=== PATIENT | female | born 1980 | race Caucasian/White ===

== ENCOUNTER 2017-06-16 23:53 | Inpatient (IN) | payer OTHER ==
--- NOTE | 2017-06-17 00:15 | PDOC ---
History of Present Illness - General History Source: Patient Exam Limitations: No Limitations - History of Present Illness Initial Comments: 06/17/17 01:47 The patient is a 37 year old A0 female with no significant PMH who presents to the emergency department with intermittent right abdominal pain that starts from the midline and radiates to the back shortly after giving to her 10 month old. The patient has not had any change in her eating habits. She states her last meal was broccoli with chicken. The patient notes her last BM was yesterday. The patient also reports associated shortness of breath and weakness secondary to her abdominal pain. The patient denies chest pain, headache and dizziness. Denies fever, chills, nausea, vomit, diarrhea and constipation. Denies dysuria, frequency, urgency and hematuria. Allergies: NKA Past surgical history: None reported Social history: No reported cigarette, alcohol, or drug use. <Miranda Kruse - Last Filed: 06/17/17 02:07> <Mandy Tabor - Last Filed: 06/17/17 06:27> - General Stated Complaint: PAIN Time Seen by Provider: 06/17/17 00:14 Past History <Miranda Kruse - Last Filed: 06/17/17 02:07> - Past Medical History Asthma: No Cancer: No Cardiac Disorders: No Diabetes: No HTN: No Seizures: No Thyroid Disease: No - Immunization History Immunization Up to Date: Yes - Suicide/Smoking/Psychosocial Hx Smoking History: Never smoked Have you smoked in the past 12 months: No Number of Cigarettes Smoked Daily: 0 Cigars Per Day: 0 Hx Alcohol Use: No Drug/Substance Use Hx: No Substance Use Type: None Hx Substance Use Treatment: No <Mandy Tabor - Last Filed: 06/17/17 06:27> - Past Medical History Allergies/Adverse Reactions: Allergies Allergy/AdvReac Type Severity Reaction Status Date / Time No Known Drug Allergies Allergy Verified 06/17/17 00:18 nut Allergy Severe Difficulty Uncoded 06/17/17 00:18 Breathing Home Medications: Ambulatory Orders Vit Calc,Iron,Folic [ Vitamins] 1 each PO DAILY 04/29/16 Ibuprofen [Motrin -] 600 mg PO QID #28 tablet 07/19/16 Review of Systems - Review of Systems Able to Perform ROS?: Yes Comments:: 06/17/17 02:01 CONSTITUTIONAL: Absent: fever, no chills, no fatigue EYES: Absent: visual changes ENT: Absent: ear pain, no sore throat CARDIOVASCULAR: Absent: chest pain, no palpitations RESPIRATORY: Absent: cough, no SOB GI: Absent: no nausea, no vomiting, no constipation, no diarrhea Present: Abdominal pain. GENITOURINARY: Absent: dysuria, no frequency, no hematuria MUSKULOSKELETAL: Absent: back pain, no arthralgia, no myalgia SKIN: Absent: rash NEURO: Absent: headache <Miranda Kruse - Last Filed: 06/17/17 02:07> *Physical Exam - Vital Signs Last Vital Signs Temp Pulse Resp BP Pulse Ox 97.6 F 92 H 18 141/84 100 06/17/17 00:19 06/17/17 00:19 06/17/17 00:19 06/17/17 00:19 06/17/17 00:19 - Physical Exam Comments: 06/17/17 02:06 GENERAL: Well-appearing, well-nourished. No apparent distress. HEENT: Normocephalic, atraumatic. PERRL, EOM intact. CARDIOVASCULAR: Normal S1, S2. Regular rate and rhythm. PULMONARY: Clear to auscultation bilaterally. ABDOMEN: Soft, non-distended, non-tender. EXTREMITIES: Normal ROM in all four extremities. No gross deformities. SKIN: Warm, dry. No rash NEUROLOGICAL: No focal neurological deficits. <Miranda Kruse - Last Filed: 06/17/17 02:07> ED Treatment Course - LABORATORY CBC & Chemistry Diagram: 06/17/17 01:46 06/17/17 01:46 <Miranda Kruse - Last Filed: 06/17/17 02:07> - LABORATORY CBC & Chemistry Diagram: 06/17/17 01:46 06/17/17 01:46 <Mandy Tabor - Last Filed: 06/17/17 06:27> Medical Decision Making - Medical Decision Making 06/17/17 06:20 Pt comes with right flank pain that extends to her back and down her side. SHe has no other complaints. Pt has a 10cm stone as well as other large stones stuck in her ureter on the right as well as huge swelling of her renal pelvis and massive hydronephrosis on the right. Pt will be admitted to the hospitalist as she needs to be evaluated by urology service <Mandy Tabor - Last Filed: 06/17/17 06:27> *DC/Admit/Observation/Transfer - Attestations Scribe Attestion: 06/17/17 02:07 Documentation prepared by Miranda Kruse, acting as medical coordinator pesticide use for Mandy Tabor MD. <Miranda Kruse - Last Filed: 06/17/17 02:07> - Discharge Dispostion Admit: Yes <Mandy Tabor - Last Filed: 06/17/17 06:27> Diagnosis at time of Disposition: Hydronephrosis with renal and ureteral calculous obstruction, Flank pain - Discharge Dispostion Condition at time of disposition: Guarded
--- NOTE | 2017-06-17 00:17 | PDOC ---
History of Present Illness - General Stated Complaint: PAIN Time Seen by Provider: 06/17/17 00:14 Past History - Past Medical History Allergies/Adverse Reactions: Allergies Allergy/AdvReac Type Severity Reaction Status Date / Time No Known Drug Allergies Allergy Verified 07/07/16 10:20 nut Allergy Severe Difficulty Uncoded 07/07/16 10:20 Breathing Home Medications: Ambulatory Orders Vit Calc,Iron,Folic [ Vitamins] 1 each PO DAILY 04/29/16 Ibuprofen [Motrin -] 600 mg PO QID #28 tablet 07/19/16 Asthma: No Cancer: No Cardiac Disorders: No Diabetes: No HTN: No Seizures: No Thyroid Disease: No - Immunization History Immunization Up to Date: Yes - Suicide/Smoking/Psychosocial Hx Smoking History: Never smoked Have you smoked in the past 12 months: No Number of Cigarettes Smoked Daily: 0 Cigars Per Day: 0 Hx Alcohol Use: No Drug/Substance Use Hx: No Substance Use Type: None Hx Substance Use Treatment: No
[2017-06-17] MEDS ORDERED: MAG HYDROX/AL HYDROX/SIMETH 30 ML UNIT-DOSE CUP PO ONE (00:54)
[2017-06-17] MEDS ORDERED: SIMETHICONE 80 MG TAB.CHEW (FP) PO ONE (00:54)
[2017-06-17] MEDS ORDERED: LACTULOSE 20 GM/30 ML UDC (FOR ORAL USE ONLY) PO ONE (00:54)
[2017-06-17] MEDS ORDERED: SODIUM CHLORIDE 0.9% 500 ML INFUS.BAG IV ONE (00:55)
[2017-06-17] MEDS ORDERED: LACTULOSE 20 GM/30 ML UDC (FOR ORAL USE ONLY) ONE (01:37)
[2017-06-17] MEDS ORDERED: MAG HYDROX/AL HYDROX/SIMETH 30 ML UNIT-DOSE CUP ONE (01:38)
[2017-06-17 01:53] LABS: BASO % 0.8 % (0-2.0); EOS % 1.6 % (0-4.5); MCH 28.2 pg (25.7-33.7); MCHC 33.1 g/dl (32.0-36.0); MEAN CELL VOLUME 85.4 fl (80-96); MEAN PLT VOLUME 8.4 fl (7.5-11.1); PLATELET COUNT 310 K/MM3 (134-434); RDW 12.9 % (11.6-15.6); WHITE BLOOD COUNT 14.9 K/mm3 (4.0-10.0)
[2017-06-17 02:41] LABS: ALBUMIN 3.5 g/dl (3.4-5.0); ALK PHOS 162 U/L (45-117); ANION GAP 8 (8-16); BILIRUBIN,TOTAL 0.1 mg/dL (0.2-1.0); CALCIUM 8.7 mg/dL (8.5-10.1); CO2 27 mmol/L (21-32); CREATININE 0.8 mg/dL (0.55-1.02); GLUCOSE,RANDOM 114 mg/dL (74-106); SGOT/AST 69 U/L (15-37); SGPT/ALT 120 U/L (12-78); TOT PROT 7.4 g/dl (6.4-8.2)
[2017-06-17 03:19] LABS: URINE APPEARANCE CLOUDY; URINE BILIRUBIN NEGATIVE (NEGATIVE); URINE BLOOD 2+ (NEGATIVE); URINE COLOR LTYELLOW; URINE GLUCOSE (UA) NEGATIVE (NEGATIVE); URINE KETONE NEGATIVE (NEGATIVE); URINE NITRITE NEGATIVE (NEGATIVE); URINE PROTEIN NEGATIVE (NEGATIVE); URINE UROBILINOGEN NEGATIVE mg/dL (0.2-1.0)
[2017-06-17 03:20] LABS: URINE LEUK ESTERASE 2+ (NEGATIVE)
[2017-06-17 03:27] LABS: URINE BACTERIA RARE /hpf (NONE SEEN); URINE MUCUS FEW; URINE RBC 108 /hpf (0-3); URINE WBC 67 /hpf (3-5)
[2017-06-17] MEDS ORDERED: morphine CARPU-JECT 2 MG/1 ML DISP.SYRIN IVPUSH ONE (06:18)
[2017-06-17] MEDS ORDERED: morphine SULFATE 4 MG/ML VIAL ONE (06:20)
[2017-06-17] MEDS ORDERED: CEFTRIAXONE 1 GM in DEXTROSE 5%-WATER - 50 ML IVPB ONE (06:26)
[2017-06-17] MEDS ORDERED: CEFTRIAXONE 1 GM/50 ML BAG ONE (06:39)
[2017-06-17 07:29] LABS: INR 1.11 (0.82-1.09); PROTHROMBIN TIME (PATIENT) 12.5 SEC (9.98-11.88)
[2017-06-17 07:32] LABS: ACTIVATED PTT 30.6 SECONDS (26.9-34.4)
[2017-06-17] MEDS ORDERED: DEXTROSE 5%-NORMAL SALINE 1,000 ML IV SCH (09:00)
[2017-06-17] MEDS ORDERED: KETOROLAC TROMETHAMINE 15 MG/ML VIAL IVPUSH PRN ×5 (09:20→21:37)
--- NOTE | 2017-06-17 09:23 | HP ---
CC: R flank pain PCP: Dr. Castanon HPI: 37 yo Cymraes speaking F w/ no significant medical history presented to the ED with R flank pain since last night. The pain is located in R flank, radiates to the groin, started 9 months ago and has been intermittent and waking her up at night, 10/10 at worst, stabbing quality, not relieved with tyelonol, aggravated by defecation and urination, a/w nausea, subjective fever and chills. No h/o gastric ulcer, diverticulosis, or ovarian cyst. Further denies chest pain, shortness of breath, headache, hematuria, hematochezia, diarrhea, constipation. PMH: Latent TB s/p INH treatment x 3 months PSH: s/p in Jul, [address] [facility] Social History: Denies smoking, drinking and drug use Family History: non-contributory Allergy: NKDA Home Meds: OTC pain relief including ibuprofen and tylenol. ROS: Constitutional: +fever, +loss of appetite, No weight loss HEENT: No headache, nasal congestion, sore throat, ear pain, vision change Skin: No rash or lesion Cardiovascular: No chest pain or sob Pulmonary: No cough (dry or productive), colored sputum Endocrine: No polyuria, polydipsia, skin /hair changes, heat/cold intolerance. GI: +abd pain, +nausea , pain on defecation : pain on urination MSK: No joint or muscle pain Psychology: No depression, anxiety, or insomnia. Physical Examination Temp Pulse Resp BP Pulse Ox 97.6 F 70 18 134/72 98 06/17/17 00:19 06/17/17 06:31 06/17/17 06:31 06/17/17 06:31 06/17/17 07:30 General: AAO x 3, calm, NAD, speak in full sentences, not in active pain Eyes: PERRLA ENT: Oropharynx clear with no lesions/erythema. Neck: Supple with no LAD or masses. Cardiovascular: tachycardic, regular, S1 and S2 normal, no m/g/r. Lungs: CTAB Abdomen: Normoactive bowel sounds. obese, Non-distended, tenderness in all quadrants except RUQ, no guarding/rebound, + R CVA tenderness Extremeties: No peripheral edema CBCD WBC 14.9 K/mm3 (4.0-10.0) H D 06/17/17 01:46 RBC 4.64 M/mm3 (3.60-5.2) D 06/17/17 01:46 Hgb 13.1 GM/dL (10.7-15.3) D 06/17/17 01:46 Hct 39.6 % (32.4-45.2) D 06/17/17 01:46 MCV 85.4 fl (80-96) 06/17/17 01:46 MCHC 33.1 g/dl (32.0-36.0) 06/17/17 01:46 RDW 12.9 % (11.6-15.6) 06/17/17 01:46 Plt Count 310 K/MM3 (134-434) D 06/17/17 01:46 MPV 8.4 fl (7.5-11.1) 06/17/17 01:46 CMP Sodium 140 mmol/L (136-145) 06/17/17 01:46 Potassium 3.7 mmol/L (3.5-5.1) 06/17/17 01:46 Chloride 105 mmol/L (98-107) 06/17/17 01:46 Carbon Dioxide 27 mmol/L (21-32) 06/17/17 01:46 Anion Gap 8 (8-16) 06/17/17 01:46 BUN 18 mg/dL (7-18) D 06/17/17 01:46 Creatinine 0.8 mg/dL (0.55-1.02) D 06/17/17 01:46 Creat Clearance w eGFR > 60 (>60) 06/17/17 01:46 Calcium 8.7 mg/dL (8.5-10.1) 06/17/17 01:46 Total Bilirubin 0.1 mg/dL (0.2-1.0) L D 06/17/17 01:46 AST 69 U/L (15-37) H D 06/17/17 01:46 ALT 120 U/L (12-78) H D 06/17/17 01:46 Alkaline Phosphatase 162 U/L (45-117) H 06/17/17 01:46 Total Protein 7.4 g/dl (6.4-8.2) D 06/17/17 01:46 Albumin 3.5 g/dl (3.4-5.0) D 06/17/17 01:46 Urine Test Results Urine Color Ltyellow 06/17/17 03:00 Urine Appearance Cloudy 06/17/17 03:00 Urine pH 7.0 (5.0-8.0) 06/17/17 03:00 Ur Specific [place] 1.014 (1.001-1.035) 06/17/17 03:00 Urine Protein Negative (NEGATIVE) 06/17/17 03:00 Urine Glucose (UA) Negative (NEGATIVE) 06/17/17 03:00 Urine Ketones Negative (NEGATIVE) 06/17/17 03:00 Urine Blood 2+ (NEGATIVE) H 06/17/17 03:00 Urine Nitrite Negative (NEGATIVE) 06/17/17 03:00 Urine Bilirubin Negative (NEGATIVE) 06/17/17 03:00 Ur Epithelial Cells Moderate /HPF (FEW) 06/17/17 03:00 Urine Bacteria Rare /hpf (NONE SEEN) 06/17/17 03:00 Urine Mucus Few 06/17/17 03:00 Imaging: CXR on 06/16: No acute pathology CT abd on 06/16: [id number] and 6mm stones in R proximal ureter with hydronephrosis , more stones in renal pelvis A/P: 37 yo F admitted to med-surg for sepsis. Sepsis - 2/2 hydronephrosis in the setting of nephrolithiasis - Urology consult - NPO for possible procedure - Urine strainer - Ceftriaxone 1g IVPB daily - D5-NS for hydration - Flomax 0.4mg daily to facilitate stone passage - Ketorolac 30mg Q6H for pain control Transaminitis - Likely reactive; normal baseline LFT - RUQ U/S and cont. to observe FEN - Cont. D5/NS 125cc/hr - Replete lytes prn - NPO Prophylaxis - DVT: SCD - GI: NPO Dispo - Awaiting urology recommendation Deejay Lewis PGY2 Pager: [phone] Visit type - Emergency Visit Emergency Visit: Yes ED Registration Date: 06/17/17 Care time: The patient presented to the Emergency Department on the above date and was hospitalized for further evaluation of their emergent condition. - New Patient This patient is new to me today: Yes Date on this admission: 06/17/17 - Critical Care Critical Care patient: No
[2017-06-17] MEDS ORDERED: TAMSULOSIN HCL 0.4 MG CAP.ER.24H (FP) PO SCH (09:30)
[2017-06-17] MEDS ORDERED: PRENATAL VITAMINS W/ FOLIC ACID TABLET (FP) PO SCH (10:00)
--- NOTE | 2017-06-17 11:14 | PN ---
Teaching Attending Note Name of Resident: Deejay Champagne ATTENDING PHYSICIAN STATEMENT Time of evaluation: 10:15 AM I saw and evaluated the patient. I reviewed the resident's note and discussed the case with the resident. I agree with the resident's findings and plan as documented. SUBJECTIVE: 37 yof with PMHx of A0, last in 07/2016, has been having intermittent right flank pain radiating to her groin since the of her last baby, intermittent. Since last night the pain got worse associated with subjective fevers, chills, some dysuria more with the pain prompting her to come to the ED. She was found with [id number] and 6 mm ureteral stones with severe right hydronephrosis. Currently patient feels better after receiving pain medications. No fevers or chills now. Urinary symptoms, dysuria, burning more so related with her abdominal and flank pain. Otherwise neg on 12 point ROS. OBJECTIVE: Vital Signs Period Temp Pulse Resp BP Sys/Carlson Pulse Ox Last 24 Hr 97.6 F 70-92 18-18 134-141/72-84 97-100 Intake & Output 06/14/17 06/15/17 06/16/17 06/17/17 23:59 23:59 23:59 23:59 Weight 175 lb GENERAL: Awake, alert, and fully oriented, in no acute distress. HEAD: Normal with no signs of trauma. EYES: Pupils equal, round and reactive to light, extraocular movements intact, sclera anicteric, conjunctiva clear. No lid lag. EARS, NOSE, THROAT: Ears normal, nares patent, oropharynx clear without exudates. Moist mucous membranes. NECK: Normal range of motion, supple without lymphadenopathy, JVD, or masses. LUNGS: Breath sounds equal, clear to auscultation bilaterally. No wheezes, and no crackles. No accessory muscle use. HEART: Regular rate and rhythm, normal S1 and S2 ABDOMEN: Soft, obese, mild Right CVA tenderness, lower abdominal pain more in RLQ, more pain rather than tenderness, no voluntary or involuntary guarding or rigidity, positive bowel sounds. MUSCULOSKELETAL: Normal range of motion at all joints. No bony deformities or tenderness. Right mild CVA tenderness UPPER EXTREMITIES: 2+ pulses, warm, well-perfused. No cyanosis. No clubbing. No peripheral edema. LOWER EXTREMITIES: 2+ pulses, warm, well-perfused. No calf tenderness. No peripheral edema. NEUROLOGICAL: Cranial nerves II-XII intact. Normal speech. N PSYCHIATRIC: Cooperative. Good eye contact. Appropriate mood and affect. SKIN: Warm, dry, normal turgor, no rashes or lesions noted, normal capillary refill. Home Medication List Medication Instructions Recorded Confirmed Type Vit Calc,Iron,Folic 1 each PO DAILY 04/29/16 06/17/17 History [ Vitamins] Active Medications Generic Name Dose Route Start Last Admin Trade Name Freq PRN Reason Stop Dose Admin Dextrose/Sodium Chloride 1,000 mls @ 125 mls/hr 06/17/17 09:00 06/17/17 10:27 D5-Ns - IV 125 mls/hr ASDIR STANFORD Administration Ketorolac Tromethamine 60 mg 06/17/17 11:15 Toradol Injection - IVPUSH 06/22/17 09:19 Q4H PRN PAIN Multivit/Folic Acid/Iron 1 tab 06/17/17 10:00 06/17/17 11:06 Vitamins (Sjr) - PO 1 tab DAILY STANFORD Administration Tamsulosin HCl 0.4 mg 06/17/17 09:30 06/17/17 10:59 Flomax - PO 0.4 mg DAILY@0830 STANFORD Administration Laboratory Results - last 24 hr 06/17/17 06/17/17 06/17/17 01:46 01:46 03:00 WBC 14.9 H D RBC 4.64 D Hgb 13.1 D Hct 39.6 D MCV 85.4 MCH 28.2 MCHC 33.1 RDW 12.9 Plt Count 310 D MPV 8.4 Neutrophils % 69.0 Lymphocytes % 22.7 Monocytes % 5.9 Eosinophils % 1.6 Basophils % 0.8 PT with INR INR PTT (Actin FS) Sodium 140 Potassium 3.7 Chloride 105 Carbon Dioxide 27 Anion Gap 8 BUN 18 D Creatinine 0.8 D Creat Clearance w eGFR > 60 Random Glucose 114 H D Calcium 8.7 Total Bilirubin 0.1 L D AST 69 H D ALT 120 H D Alkaline Phosphatase 162 H Total Protein 7.4 D Albumin 3.5 D Urine Color Ltyellow Urine Appearance Cloudy Urine pH 7.0 Ur Specific [place] 1.014 Urine Protein Negative Urine Glucose (UA) Negative Urine Ketones Negative Urine Blood 2+ H Urine Nitrite Negative Urine Bilirubin Negative Urine Urobilinogen Negative Urine WBC (Auto) 67 Urine RBC (Auto) 108 Ur Epithelial Cells Moderate Amorphous Urates Few Urine Bacteria Rare Urine Mucus Few 06/17/17 07:00 WBC RBC Hgb Hct MCV MCH MCHC RDW Plt Count MPV Neutrophils % Lymphocytes % Monocytes % Eosinophils % Basophils % PT with INR 12.50 H INR 1.11 PTT (Actin FS) 30.6 Sodium Potassium Chloride Carbon Dioxide Anion Gap BUN Creatinine Creat Clearance w eGFR Random Glucose Calcium Total Bilirubin AST ALT Alkaline Phosphatase Total Protein Albumin Urine Color Urine Appearance Urine pH Ur Specific [place] Urine Protein Urine Glucose (UA) Urine Ketones Urine Blood Urine Nitrite Urine Bilirubin Urine Urobilinogen Urine WBC (Auto) Urine RBC (Auto) Ur Epithelial Cells Amorphous Urates Urine Bacteria Urine Mucus CT A/P (overnight prelim read) - 7x7x9 mm proximal and 6mm ureteral stone with severe right hydronephrosis CXR - no acute process ASSESSMENT AND PLAN: 37 yof with nephroloithiasis, severe right hydronephrosis and possible lower uncomplicated UTI. -Nephrolithiasis with severe right hydronephrosis -Obstructive uropathy -Suspected lower uncomplicated UTI. Plan: ceftriaxone, urine cultures, IVF, pain control, NPO for now, Urology consult for possible intervention today. Check urine screen Dispo pending urology intervention and improvement in symptoms. Plan discussed with patient in detail, all questions answered. total admit time 50 min.
[2017-06-17] MEDS ORDERED: morphine SULFATE 4 MG/ML VIAL IVPUSH PRN ×2 (13:26→21:37)
--- NOTE | 2017-06-17 14:54 | EKG ---
Test Reason : Blood Pressure : / mmHG Vent. Rate : 090 BPM Atrial Rate : 090 BPM P-R Int : 164 ms QRS Dur : 086 ms QT Int : 352 ms P-R-T Axes : 036 -10 030 degrees QTc Int : 430 ms NORMAL SINUS RHYTHM MINIMAL VOLTAGE CRITERIA FOR LVH, MAY BE NORMAL VARIANT BORDERLINE ECG WHEN COMPARED WITH ECG OF 13-FEB-2016 12:28, NO SIGNIFICANT CHANGE WAS FOUND Confirmed by ALESIA MAYFIELD MD ([id number]) on 06/17/2017 2:54:32 PM Referred By: Confirmed By:ALESIA MAYFIELD MD
[2017-06-17 17:05] VITALS: BMI 39.7
--- NOTE | 2017-06-17 17:08 | CON.GU ---
Consult - History of Present Illness History of Present Illness: 37 yo female admitted with rt renal colic, elevated WBC and 9mm obstructing rt UPJ stone. No prior h/o nephrolithiasis - Past Medical History ...: No - Past Surgical History Past Surgical History: Yes: - Alcohol/Substance Use Hx Alcohol Use: No - Smoking History Smoking history: Never smoked Have you smoked in the past 12 months: No Aproximately how many cigarettes per day: 0 - Social History History of Recent Travel: No Home Medications - Allergies Allergies/Adverse Reactions: Allergies Allergy/AdvReac Type Severity Reaction Status Date / Time No Known Drug Allergies Allergy Verified 06/17/17 00:18 nut Allergy Severe Difficulty Uncoded 06/17/17 00:18 Breathing - Home Medications Home Medications: Ambulatory Orders Vit Calc,Iron,Folic [ Vitamins] 1 each PO DAILY 04/29/16 Ibuprofen [Motrin -] 600 mg PO QID #28 tablet 07/19/16 Physical Exam- Vital Signs: Vital Signs Temperature 98 F 06/17/17 15:00 Pulse Rate 75 06/17/17 15:00 Respiratory Rate 18 06/17/17 15:00 Blood Pressure 130/72 06/17/17 15:00 O2 Sat by Pulse Oximetry (%) 98 06/17/17 07:30 Renal/: Yes: WNL Labs: CBC, BMP 06/17/17 01:46 06/17/17 01:46 Imaging - Results Cat Scan: Image Reviewed Problem List - Problems (1) Hydronephrosis with renal and ureteral calculous obstruction Assessment/Plan: plan for cysto/stent placement today. Will need lithotripsy electively Code(s): N13.2 - HYDRONEPHROSIS WITH RENAL AND URETERAL CALCULOUS OBSTRUCTION
[2017-06-17] MEDS ORDERED: MIDAZOLAM HCL 2 MG/2 ML SINGLE DOSE VIAL ONE (17:16)
[2017-06-17] MEDS ORDERED: PROPOFOL 20 ML ONE ×2 (17:17)
[2017-06-17] MEDS ORDERED: AMPICILLIN NA/SULBACTAM NA 1.5 GM VIAL ONE (17:19)
--- NOTE | 2017-06-17 17:45 | OP ---
Operative Note - Note: Operative Date: 06/17/17 Pre-Operative Diagnosis: obstructing RUPJ stone Operation: cysto/retrograde/stent placement Findings: obstructing stone Post-Operative Diagnosis: Same as Pre-op Surgeon: Terrence Gruber Anesthesiologist/MEAT HANGER: Jamilah Mckee MD Anesthesia: General Drains & Tubes with Location: 7fr, 24cm stent Operative Report Dictated: Yes
[2017-06-17] MEDS ORDERED: ACETAMINOPHEN INJECTION 100 ML IVPB ONE (17:53)
[2017-06-17] MEDS ORDERED: ONDANSETRON 4 MG/2 ML VIAL IVPUSH PRN (18:19)
[2017-06-17] MEDS ORDERED: ACETAMINOPHEN 1000 MG/100 ML VIAL (NON FORMULARY) IVPB ONE (18:20)
[2017-06-17 19:50] LABS: URINE LEUK ESTERASE NEGATIVE (NEGATIVE)
[2017-06-17] MEDS: LACTATED RINGERS SOLUTION 1,000 ML IV SCH (22:00)
[2017-06-18] MEDS ORDERED: PT OWN MED DRAWER 7, Y5N ONE ×2 (01:23→07:11)
[2017-06-18] MEDS: LACTATED RINGERS SOLUTION 1,000 ML IV SCH (06:36)
[2017-06-18 07:42] LABS: MCH 28.2 pg (25.7-33.7); MCHC 32.9 g/dl (32.0-36.0); MEAN CELL VOLUME 85.7 fl (80-96); MEAN PLT VOLUME 8.8 fl (7.5-11.1); PLATELET COUNT 324 K/MM3 (134-434); WHITE BLOOD COUNT 10.6 K/mm3 (4.0-10.0)
[2017-06-18 07:43] LABS: INR 1.18 (0.82-1.09); PROTHROMBIN TIME (PATIENT) 13.3 SEC (9.98-11.88)
[2017-06-18 07:46] LABS: ACTIVATED PTT 28.5 SECONDS (26.9-34.4)
[2017-06-18 08:10] LABS: ANION GAP 8 (8-16); CALCIUM 8.4 mg/dL (8.5-10.1); CO2 23 mmol/L (21-32); CREATININE 0.5 mg/dL (0.55-1.02); GLUCOSE,RANDOM 134 mg/dL (74-106); SGOT/AST 38 U/L (15-37); SGPT/ALT 92 U/L (12-78)
[2017-06-18 08:12] LABS: ALK PHOS 122 U/L (45-117); BILIRUBIN,TOTAL 0.5 mg/dL (0.2-1.0); TOT PROT 6.9 g/dl (6.4-8.2)
[2017-06-18] MEDS ORDERED: TAMSULOSIN HCL 0.4 MG CAP.ER.24H (FP) PO SCH (08:30)
--- NOTE | 2017-06-18 08:43 | OP ---
DATE OF OPERATION: 06/17/2017 PREOPERATIVE DIAGNOSIS: Obstructing right ureteropelvic junction stone. POSTOPERATIVE DIAGNOSIS: Obstructing right ureteropelvic junction stone. PROCEDURE: Cystoscopy, right retrograde pyelogram, ureteral stent placement. SURGEON: Terrence Gruber MD INDICATIONS: Patient is a 37-year-old female who presented with right-sided flank pain. CT scan showed an obstructing 9-mm stone with elevated white count. Patient was taken to the OR for cystoscopy and stent placement. DESCRIPTION OF PROCEDURE: After informed consent was obtained, and risks, benefits, and alternatives were discussed, the patient was taken to the OR for the procedure. She was taken to the OR. General anesthesia was then established. She was prepped and draped in dorsal lithotomy position. She was given 4.5 g of Unasyn. At this point, the rigid cystoscope was introduced without difficulty into the bladder. Attention was turned to the right ureteral orifice. There was no abnormalities noted in the bladder. Right ureteral orifice was cannulated with ureteral catheter. Contrast was injected progressively , and there was hydronephrosis to the UPJ, moderate hydronephrosis. A guidewire was advanced beyond the stone noted at the UPJ, and then, over the guidewire, the 7-German 24-cm double pigtail stent was advanced in a monorail fashion. Fluoroscopy confirmed stent to be in good position. Patient was awoken from anesthesia and transferred to recovery room in stable condition. There were no complications. ESTIMATED BLOOD LOSS: 0. [place] [id number]
[2017-06-18] MEDS ORDERED: PRENATAL VITAMINS W/ FOLIC ACID TABLET (FP) PO SCH (10:00)
[2017-06-18] MEDS ORDERED: CEFTRIAXONE 1 G/50 ML PREMIX 50 ML IVPB SCH ×2 (10:00)
--- NOTE | 2017-06-18 13:16 | PN ---
Progress Note (short form) - Note Progress Note: Anesthesia POD#1 S/P Cystoscopy under GA VSS,no N/V,no pain issues,food is advanced. Eladia Childs MD.
--- NOTE | 2017-06-18 14:28 | PN ---
Teaching Attending Note Name of Resident: Terrence Smith ATTENDING PHYSICIAN STATEMENT I saw and evaluated the patient. I reviewed the resident's note and discussed the case with the resident. I agree with the resident's findings and plan as documented. SUBJECTIVE:states pain has mostly resolved. denies CP, SOB, fever, chills, N/V/C /D. OBJECTIVE: Last Vital Signs Temp Pulse Resp BP Pulse Ox 98.2 F 73 20 129/72 97 06/18/17 06:00 06/18/17 06:00 06/18/17 06:00 06/18/17 06:00 06/17/17 21:00 General NAD CV S1 S2 RRR no murmru/rub/gallop Lungs CTA B/L no wheezing/rales/rhonchi Abdomen soft NT/ND no CVA tenderness ASSESSMENT AND PLAN: 37 yo F with nephroloithiasis, severe right hydronephrosis and possible lower uncomplicated UTI. 1. Severe R hydronephrosis due to obstructive nephrolithasis- s/p R UVJ stent . will need elective lithotripsy. no renal impairment. on flomax. cont to strain urine to obtain stone for composition. 2. Suspected UTI- due to obstruction. prophylactic treatment in setting of stent placement. on Ceftriaxone day2. complete 7 day course 3. d/c home today -Nephrolithiasis with severe right hydronephrosis -Obstructive uropathy -Suspected lower uncomplicated UTI. Plan: ceftriaxone, urine cultures, IVF, pain control, NPO for now, Urology consult for possible intervention today. Check urine screen Dispo pending urology intervention and improvement in symptoms. Plan discussed with patient in detail, all questions answered. total admit time 50 min.
[2017-06-18 14:45] VITALS: BP 111/72; PULSE 77; TEMP 98.3
--- NOTE | 2017-06-18 19:14 | DS ---
Physical Exam: SUBJECTIVE: Patient seen and examined OBJECTIVE: Vital Signs Period Temp Pulse Resp BP Sys/Carlson Pulse Ox Last 24 Hr 98.2 F-98.3 F 73-89 18-20 111-140/58-78 97-97 PHYSICAL EXAM GENERAL: The patient is awake, alert, and fully oriented, in no acute distress. HEAD: Normal with no signs of trauma. EYES: PERRL, extraocular movements intact, sclera anicteric, conjunctiva clear. ENT: Ears normal, nares patent, oropharynx clear without exudates, moist mucous membranes. NECK: Trachea midline, full range of motion, supple. LUNGS: Breath sounds equal, clear to auscultation bilaterally, no wheezes, no crackles, no accessory muscle use. HEART: Regular rate and rhythm, S1, S2 without murmur, rub or gallop. ABDOMEN: Soft, nontender, nondistended, normoactive bowel sounds, no guarding, no rebound, no hepatosplenomegaly, no masses. EXTREMITIES: 2+ pulses, warm, well-perfused, no edema. NEUROLOGICAL: Cranial nerves II through XII grossly intact. Normal speech, gait not observed. PSYCH: Normal mood, normal affect. SKIN: Warm, dry, normal turgor, no rashes or lesions noted. LABS Laboratory Results - last 24 hr 06/17/17 06/18/17 06/18/17 03:00 06:30 06:30 WBC 10.6 H RBC 4.49 Hgb 12.7 Hct 38.5 MCV 85.7 MCH 28.2 MCHC 32.9 RDW 13.0 Plt Count 324 MPV 8.8 PT with INR 13.30 H INR 1.18 H PTT (Actin FS) 28.5 Sodium Potassium Chloride Carbon Dioxide Anion Gap BUN Creatinine Creat Clearance w eGFR Random Glucose Calcium Total Bilirubin AST ALT Alkaline Phosphatase Total Protein Albumin Ur Leukocyte Esterase Negative 06/18/17 06:30 WBC RBC Hgb Hct MCV MCH MCHC RDW Plt Count MPV PT with INR INR PTT (Actin FS) Sodium 138 Potassium 4.3 Chloride 107 Carbon Dioxide 23 Anion Gap 8 BUN 14 D Creatinine 0.5 L D Creat Clearance w eGFR > 60 Random Glucose 134 H Calcium 8.4 L Total Bilirubin 0.5 D AST 38 H D ALT 92 H D Alkaline Phosphatase 122 H D Total Protein 6.9 Albumin 3.0 L Ur Leukocyte Esterase HOSPITAL COURSE: Date of Admission:06/17/17 37 year old female no medical history presented to the hospital with right flank pain that radiated to her groin for several months duration. She was diagnosed with sepsis secondary to hydronephrosis due to an obstructing 7mm stone in the right ureteropelvic junction. Patient was treated initially with ceftriaxone 1gm, IV fluids, and flomax. Dr. Gruber was consulted and placed a R sided UPJ stent. Patient was discharged home with instructions to follow up with Dr. Gruber in the clinic for possible lithotripsy in the future if the stone does not pass on its own. She was instructed to strain her urine and bring the stone to the urologist's office for analysis if she manages to obtain it. She was instructed to follow with her primary care physician within 1 week of discharge. Date of Discharge: 06/18/17 Minutes to complete discharge: 30 Discharge Summary Reason For Visit: HYDRONEEPHROSISWITH RENAL AND URETHRAL CALCULUS Condition: Improved - Instructions Diet, Activity, Other Instructions: Ms. Lopez, you have been diagnosed with a kidney stone. You had a right sided urethral stent placed to keep to help passage of urine and possibly the stone. Please continue to drink plenty of fluids to help pass the stone. You have been prescribed a medication that causes increased urination to assist in passing stone. Please use the strainer given every time you urinate to try and catch stone, which you can bring to your urologist to be evaluated. Please continue to take prescribed antibiotic as directed. Diet instructed printed. Please follow up with urologist with in one week. Please follow up at clinic with in the next two weeks. If you experience any worsening of symptoms including fever, chills, intractable pain, please return to the emergency room. Referrals: Anthony Pisano MD [Staff Physician] - Terrence Gruber MD [Staff Physician] - Disposition: HOME - Home Medications Comprehensive Discharge Medication List: Ambulatory Orders Vit Calc,Iron,Folic [ Vitamins] 1 each PO DAILY 04/29/16 Cefuroxime Axetil [Ceftin -] 500 mg PO Q12H #10 tablet 06/18/17 Ibuprofen [Motrin -] 600 mg PO QID #28 tablet 06/18/17 Tamsulosin HCl [Flomax -] 0.4 mg PO DAILY@0830 #7 cap.er.24h 06/18/17 This patient is new to me today: No Emergency Visit: No Critical Care patient: No - Discharge Referral Referred to [facility] No
== END 2017-06-18 17:43 | disposition home or self-care (01) | DRG 463 ==
LOC: JER 23:53 → JERBED 06-17 06:27 → J5S 06-17 08:37
PROVIDERS: ADMIT Internal Medicine; ATTEND Internal Medicine
PROC: 0T768DZ Dilation of Right Ureter with Intraluminal Device, Via Natural or Artificial Opening Endoscopic (ICD-10-PCS; principal; 2017-06-17 16:00)
PROC: BT1DZZZ Fluoroscopy of Right Kidney, Ureter and Bladder (ICD-10-PCS; 2017-06-17 16:00)
DX: N13.6 Pyonephrosis (principal); R74.0 Nonspecific elevation of levels of transaminase and lactic acid dehydrogenase [LDH]; E66.8 Other obesity; Z68.39 Body mass index [BMI] 39.0-39.9, adult
CPT/HCPCS: 36415; 71010-TC; 74177-TC; 76000-TC; 76705-TC; 80053; 81003; 81015; 84703; 85025; 85027; 85610; 85730; 87086; 93005; 93010; 94760; 99285-25

== ENCOUNTER 2020-12-22 12:28 | Inpatient (IN) | payer OTHER ==
[2020-12-22 14:36] VITALS: BMI 45.1
[2020-12-22] MEDS ORDERED: CITRIC ACID/SODIUM CITRATE 30 ML UNIT-DOSE CUP PO ONE (15:10)
[2020-12-22] MEDS ORDERED: ELECTROLYTE-148 SOLN 1,000 ML IV SCH (15:15)
[2020-12-22] MEDS ORDERED: FAMOTIDINE 20 MG/50 ML IVPB 20 MG/50 ML MG IVPB ONE (15:55)
[2020-12-22 16:10] LABS: BASO % 0.2 % (0-2.0); EOS % 0.7 % (0-4.5); HEMATOCRIT 37.2 % (32.4-45.2); HEMOGLOBIN 12.4 GM/dL (10.7-15.3); LYMPH % 20.6 % (8-40); MCH 29.4 pg (25.7-33.7); MCHC 33.2 g/dl (32.0-36.0); MEAN CELL VOLUME 88.4 fl (80-96); MEAN PLT VOLUME 8.8 fl (7.5-11.1); MONO % 4.5 % (3.8-10.2); PLATELET COUNT 242 10^3/uL (134-434); RBC 4.21 M/mm3 (3.60-5.2); RDW 13.8 % (11.6-15.6)
[2020-12-22 16:23] LABS: INR 0.96 (0.83-1.09); PROTHROMBIN TIME (PATIENT) 11.8 SEC (9.7-13.0)
[2020-12-22 16:26] LABS: ACTIVATED PTT 27.9 SECONDS (25.2-36.5)
[2020-12-22 16:33] LABS: CALCIUM 8.7 mg/dL (8.5-10.1)
[2020-12-22 16:37] LABS: CREATININE 0.4 mg/dL (0.55-1.3)
[2020-12-22] MEDS ORDERED: morphine SULFATE/PF 0.5 MG/ML (2cc Syringe - QUVA) ONE (17:54)
[2020-12-22] MEDS ORDERED: OXYTOCIN 20 UNITS in 0.9% NS 20 UNIT/1,000 ML INFUS.BAG IV ONE ×2 (18:03→21:20)
[2020-12-22] MEDS ORDERED: ONDANSETRON 4 MG/2 ML VIAL IVPUSH PRN (19:03)
[2020-12-22] MEDS ORDERED: morphine SULFATE/PF 0.5 MG/ML (2cc Syringe - QUVA) EP ONE (19:03)
[2020-12-22] MEDS ORDERED: WITCH HAZEL 50% (TUCKS) 40 PAD/JAR PAD TP PRN (20:15)
[2020-12-22] MEDS ORDERED: OXYTOCIN 20 UNITS in 0.9% NS 20 UNIT/1,000 ML INFUS.BAG IV SCH (20:15)
[2020-12-22] MEDS ORDERED: BENZOCAINE 20% 57 GM BOTTLE TP PRN (20:15)
[2020-12-22] MEDS ORDERED: METHYLERGONOVINE MALEATE 0.2 MG/1 ML AMP IM PRN (20:15)
[2020-12-22] MEDS ORDERED: BENZOCAINE 28 GM HEMORRHOIDAL OINTMENT PR PRN (20:15)
[2020-12-22] MEDS ORDERED: DEXTROSE 5%-LACTATED RINGERS 1,000 ML IV SCH (20:15)
[2020-12-22] MEDS ORDERED: diphenhydrAMINE HCL 25 MG CAPSULE (FP) PO PRN (20:15)
[2020-12-22] MEDS ORDERED: oxyCODONE HCL 5 MG TABLET PO PRN (20:15)
[2020-12-22 21:36] LABS: CORD BASE EXCESS -4.9 mmol/L (0-2); CORD HCO3 23.2 mmHg (20-29); CORD PCO2 55.3 mmHg (30-78); CORD pH 7.241 (7.14-7.44)
[2020-12-22 21:39] LABS: CORD BASE EXCESS -3.1 mmol/L (0-2); CORD HCO3 26.2 mmHg (20-29); CORD PCO2 67.7 mmHg (30-78); CORD pH 7.206 (7.14-7.44)
[2020-12-23] MEDS: CEFAZOLIN 1 GM/D5W 1 GM/50 ML BAG IVPB SCH ×2 (01:50→09:16)
[2020-12-23] MEDS: IBUPROFEN 800 MG/8 ML IJ IVPB PRN ×2 (02:31→09:15)
[2020-12-23 07:25] LABS: HEMATOCRIT 36.2 % (32.4-45.2); HEMOGLOBIN 11.6 GM/dL (10.7-15.3); LYMPH % 8.8 % (8-40); MCH 28.6 pg (25.7-33.7); MCHC 31.9 g/dl (32.0-36.0); MEAN CELL VOLUME 89.7 fl (80-96); MEAN PLT VOLUME 9.4 fl (7.5-11.1); MONO % 3.6 % (3.8-10.2); NEUT % 87.6 % (42.8-82.8); PLATELET COUNT 224 10^3/uL (134-434); RBC 4.03 M/mm3 (3.60-5.2); RDW 13.6 % (11.6-15.6)
[2020-12-23] MEDS: ENOXAPARIN NA (PORCINE) 40 MG/0.4 ML DISP.SYRIN SQ SCH (09:16)
[2020-12-23] MEDS: SIMETHICONE 80 MG TAB.CHEW (FP) PO PRN (09:20)
[2020-12-23] MEDS: ACETAMINOPHEN 325 MG TABLET (FP) PO PRN (19:34)
[2020-12-23] MEDS: IBUPROFEN 600 MG TABLET (FP) PO PRN (19:35)
[2020-12-23] MEDS ORDERED: BISACODYL 10 MG SUPP.RECT PR PRN (20:15)
[2020-12-24] MEDS: ACETAMINOPHEN 325 MG TABLET (FP) PO PRN ×3 (04:35→21:06)
[2020-12-24] MEDS: IBUPROFEN 600 MG TABLET (FP) PO PRN ×4 (04:35→21:06)
[2020-12-24] MEDS: SIMETHICONE 80 MG TAB.CHEW (FP) PO PRN ×4 (04:36→21:05)
[2020-12-24] MEDS: oxyCODONE HCL 5 MG TABLET PO PRN ×2 (08:55→21:07)
[2020-12-24] MEDS: ENOXAPARIN NA (PORCINE) 40 MG/0.4 ML DISP.SYRIN SQ SCH (09:37)
[2020-12-24 21:45] VITALS: PULSE 82
[2020-12-24] MEDS ORDERED: SENNOSIDES/DOCUSATE COMBO (SENNA PLUS) TABLET (UD) PO PRN (22:00)
[2020-12-25] MEDS: ACETAMINOPHEN 325 MG TABLET (FP) PO PRN ×2 (05:42→10:08)
[2020-12-25] MEDS: oxyCODONE HCL 5 MG TABLET PO PRN (05:43)
[2020-12-25] MEDS: SIMETHICONE 80 MG TAB.CHEW (FP) PO PRN ×2 (05:45→10:08)
[2020-12-25 09:55] LABS: BASO % 0.5 % (0-2.0); EOS % 1.9 % (0-4.5); HEMATOCRIT 33.7 % (32.4-45.2); HEMOGLOBIN 11.2 GM/dL (10.7-15.3); LYMPH % 29.6 % (8-40); MCH 29.4 pg (25.7-33.7); MCHC 33.1 g/dl (32.0-36.0); MEAN CELL VOLUME 88.9 fl (80-96); MEAN PLT VOLUME 9.3 fl (7.5-11.1); MONO % 6.4 % (3.8-10.2); NEUT % 61.6 % (42.8-82.8); PLATELET COUNT 254 10^3/uL (134-434); RBC 3.79 M/mm3 (3.60-5.2); RDW 13.6 % (11.6-15.6)
[2020-12-25] MEDS: ENOXAPARIN NA (PORCINE) 40 MG/0.4 ML DISP.SYRIN SQ SCH (10:03)
[2020-12-25] MEDS: IBUPROFEN 600 MG TABLET (FP) PO PRN (10:07)
[2020-12-25 14:43] VITALS: BP 142/86; TEMP 98.3
== END 2020-12-25 14:10 | disposition home or self-care (01) | DRG 540 ==
LOC: JLDR 12:28 → J3W 21:40
PROVIDERS: ADMIT Obstetrics & Gynecology; ATTEND Obstetrics & Gynecology
PROC: 10D00Z1 Extraction of Products of Conception, Low, Open Approach (ICD-10-PCS; principal; 2020-12-22)
PROC: 0UL70ZZ Occlusion of Bilateral Fallopian Tubes, Open Approach (ICD-10-PCS; 2020-12-22)
DX: O34.219 Maternal care for unspecified type scar from previous cesarean delivery (principal); Z3A.39 39 weeks gestation of pregnancy; Z37.0 Single live birth; O99.214 Obesity complicating childbirth; E66.01 Morbid (severe) obesity due to excess calories; Z30.2 Encounter for sterilization; O90.89 Other complications of the puerperium, not elsewhere classified; R51.9 Headache, unspecified
CPT/HCPCS: 36415; 36600; 80048; 82803; 85025; 85610; 85730; 86780; 86850; 86900; 86901; 88302-TC; 88307-TC; C9803; U0003; U0005

== ENCOUNTER 2022-04-02 17:44 | Emergency (ER) | payer OTHER ==
[2022-04-02 18:12] VITALS: BP 114/67; PULSE 59; RESP 18; TEMP 97.8; BMI 28.3
== END 2022-04-02 19:20 | disposition home or self-care (01) ==
LOC: JER 17:44 → JERFT 17:44
DX: M72.2 Plantar fascial fibromatosis (principal)
CPT/HCPCS: 73610-TC-LT-FY; 73630-TC-LT; 99283-25

== ENCOUNTER 2022-11-02 19:01 | Emergency (ER) | payer OTHER ==
[2022-11-02 19:13] VITALS: BMI 28.3
[2022-11-02] MEDS ORDERED: ACETAMINOPHEN 1000 MG/100 ML BAG IVPB ONE (19:44)
[2022-11-02] MEDS ORDERED: METOCLOPRAMIDE HCL INJECTION 10 MG/2 ML VIAL IVPB ONE (19:44)
[2022-11-02] MEDS ORDERED: SODIUM CHLORIDE 0.9% 500 ML INFUS.BAG IV ONE ×2 (19:44→19:51)
[2022-11-02] MEDS ORDERED: MAG HYDROX/AL HYDROX/SIMETH -MYLANTA- ORAL SUSPENSION PO ONE (19:45)
[2022-11-02] MEDS ORDERED: FAMOTIDINE 20 MG/50 ML IVPB 20 MG/50 ML MG IVPB ONE ×2 (19:45→19:49)
[2022-11-02] MEDS ORDERED: MAG HYDROX/AL HYDROX/SIMETH 30 ML UNIT-DOSE CUP ONE ×2 (19:49→19:52)
[2022-11-02] MEDS ORDERED: ACETAMINOPHEN INJECTION 100 ML IVPB ONE (19:49)
[2022-11-02] MEDS ORDERED: METOCLOPRAMIDE HCL INJECTION 10 MG/2 ML VIAL ONE (19:49)
[2022-11-02 20:51] LABS: BASO % 0.2 % (0-2.0); HEMATOCRIT 33.8 % (32.4-45.2); LYMPH % 4.1 % (8-40); MCH 24.8 pg (25.7-33.7); MCHC 32.7 g/dl (32.0-36.0); MEAN CELL VOLUME 75.9 fl (80-96); MEAN PLT VOLUME 9.4 fl (7.5-11.1); MONO % 4.2 % (3.8-10.2); NEUT % 91.5 % (42.8-82.8); PLATELET COUNT 261 10^3/uL (134-434); RBC 4.45 M/mm3 (3.60-5.2); WHITE BLOOD COUNT 13.1 K/mm3 (4.0-10.0)
[2022-11-02 21:13] LABS: ALBUMIN 3.4 g/dl (3.4-5.0); CALCIUM 8.7 mg/dL (8.5-10.1); MAGNESIUM 1.9 mg/dL (1.8-2.4)
[2022-11-02 21:16] LABS: CREATININE 0.8 mg/dL (0.55-1.3)
[2022-11-02 21:18] LABS: BILIRUBIN,TOTAL 0.3 mg/dL (0.2-1); TOT PROT 7.1 g/dl (6.4-8.2)
[2022-11-02 22:00] LABS: ANISOCYTOSIS 0; MACROCYTOSIS 0; PLATELET ESTIMATE NORMAL
[2022-11-02 22:30] VITALS: BP 108/68; PULSE 67; RESP 12; TEMP 98.6
== END 2022-11-02 22:58 | disposition home or self-care (01) ==
LOC: JER 19:01
PROC: 3E033GC Introduction of Other Therapeutic Substance into Peripheral Vein, Percutaneous Approach (ICD-10-PCS; principal; 2022-11-02)
DX: B34.9 Viral infection, unspecified (principal)
CPT/HCPCS: 0241U-QW; 36415; 80053; 83690; 83735; 84703; 85025; 99284-25

== ENCOUNTER 2023-03-04 22:21 | Emergency (ER) | payer OTHER ==
[2023-03-04 22:34] VITALS: BP 113/77; PULSE 69; RESP 18; TEMP 98.2; BMI 31.5
[2023-03-05] MEDS ORDERED: ACETAMINOPHEN 500 MG TABLET (FP) PO ONE (01:16)
== END 2023-03-05 02:05 | disposition home or self-care (01) ==
LOC: JERFT 22:21
DX: S83.512A Sprain of anterior cruciate ligament of left knee, initial encounter (principal); M25.562 Pain in left knee; W01.0XXA Fall on same level from slipping, tripping and stumbling without subsequent striking against object, initial encounter
CPT/HCPCS: 73562-TC-LT-FY; 99283-25

== ENCOUNTER 2023-04-17 23:35 | Inpatient (IN) | payer OTHER ==
[2023-04-17 23:46] VITALS: BMI 29.9
[2023-04-18] MEDS ORDERED: ACETAMINOPHEN 1000 MG/100 ML BAG IVPB ONE ×3 (00:09→10:57)
[2023-04-18] MEDS ORDERED: ONDANSETRON 4 MG/2 ML VIAL IVPUSH ONE (00:09)
[2023-04-18] MEDS ORDERED: FAMOTIDINE 20 MG/50 ML IVPB 20 MG/50 ML MG IVPB ONE ×2 (00:09→00:42)
[2023-04-18] MEDS ORDERED: LACTATED RINGERS SOLUTION 1000 ML INFUS.BAG IV ONE (00:09)
[2023-04-18] MEDS ORDERED: ACETAMINOPHEN INJECTION 100 ML IVPB ONE ×2 (00:15→10:54)
[2023-04-18] MEDS ORDERED: ONDANSETRON 4 MG/2 ML VIAL ONE ×3 (00:16→08:50)
[2023-04-18 00:31] LABS: BASO % 0.8 % (0-2.0); EOS % 1.2 % (0-4.5); HEMATOCRIT 30.3 % (32.4-45.2); HEMOGLOBIN 9.7 GM/dL (10.7-15.3); LYMPH % 20.9 % (8-40); MCH 22.3 pg (25.7-33.7); MCHC 32.2 g/dl (32.0-36.0); MEAN CELL VOLUME 69.3 fl (80-96); MEAN PLT VOLUME 8.4 fl (7.5-11.1); MONO % 8.3 % (3.8-10.2); NEUT % 68.8 % (42.8-82.8); PLATELET COUNT 296 10^3/uL (134-434); RBC 4.38 M/mm3 (3.60-5.2); WHITE BLOOD COUNT 13.8 K/mm3 (4.0-10.0)
[2023-04-18 00:33] LABS: EPI CELLS 16 /uL (0-25.1); HYALINE CASTS 0 /uL (0-3.1); PH,URINE 6.5 (5.0-8.0); URINE APPEARANCE CLEAR; URINE BACTERIA >9,000 /uL (0-1359); URINE BILIRUBIN NEGATIVE (NEGATIVE); URINE COLOR YELLOW; URINE GLUCOSE (UA) NEGATIVE (NEGATIVE); URINE KETONE NEGATIVE (NEGATIVE); URINE LEUK ESTERASE TRACE (NEGATIVE); URINE NITRITE POSITIVE (NEGATIVE); URINE PROTEIN NEGATIVE (NEGATIVE); URINE RBC 145 /uL (0-23.9); URINE WBC 49 /uL (0-25.8)
[2023-04-18 00:34] LABS: HCG,QUALITATIVE URINE Negative
[2023-04-18] MEDS ORDERED: CEFTRIAXONE 1 GM in DEXTROSE 5%-WATER - 100 ML IVPB ONE (00:35)
[2023-04-18] MEDS ORDERED: CEFTRIAXONE 1 GM/50 ML BAG ONE (00:41)
[2023-04-18 01:12] LABS: POTASSIUM 4.3 mmol/L (3.5-5.1)
[2023-04-18 01:14] LABS: ALBUMIN 3.4 g/dl (3.4-5.0); BLOOD UREA NITROGEN 9.6 mg/dL (7-18); CALCIUM 8.4 mg/dL (8.5-10.1); MAGNESIUM 2.2 mg/dL (1.8-2.4)
[2023-04-18 01:17] LABS: CREATININE 0.6 mg/dL (0.55-1.3)
[2023-04-18 01:20] LABS: BILIRUBIN,TOTAL 0.4 mg/dL (0.2-1); TOT PROT 7.1 g/dl (6.4-8.2)
[2023-04-18] MEDS ORDERED: ACETAMINOPHEN 1000 MG/100 ML BAG IVPB PRN (05:33)
[2023-04-18] MEDS ORDERED: ONDANSETRON 4 MG/2 ML VIAL IVPUSH PRN ×2 (05:40→10:47)
[2023-04-18] MEDS ORDERED: SODIUM CHLORIDE 1,000 ML IV SCH (05:45)
[2023-04-18 07:12] LABS: HEMATOCRIT 29.2 % (32.4-45.2); HEMOGLOBIN 9.1 GM/dL (10.7-15.3); MCHC 31.1 g/dl (32.0-36.0); MEAN CELL VOLUME 70.7 fl (80-96); PLATELET COUNT 264 10^3/uL (134-434); RBC 4.14 M/mm3 (3.60-5.2); RDW 15.6 % (11.6-15.6); WHITE BLOOD COUNT 17.3 K/mm3 (4.0-10.0)
[2023-04-18 07:13] LABS: INR 1.21 (0.83-1.09)
[2023-04-18 07:16] LABS: ACTIVATED PTT 27.1 SECONDS (25.2-36.5)
[2023-04-18 07:38] LABS: POTASSIUM 4.1 mmol/L (3.5-5.1)
[2023-04-18 08:19] LABS: RETICULOCYTES 1.08 % (0.5-1.5)
[2023-04-18] MEDS ORDERED: BUPIVACAINE HCL/PF 0.25% (2.5MG/ML) 10 ML VIAL ONE (08:24)
[2023-04-18 08:29] LABS: BLOOD UREA NITROGEN 6.7 mg/dL (7-18)
[2023-04-18] MEDS ORDERED: SUCCINYLCHOLINE CHLORIDE 200 MG/10 ML SYRINGE ONE (08:29)
[2023-04-18] MEDS ORDERED: ROCURONIUM BROMIDE 50 MG/5 ML SYRINGE ONE (08:29)
[2023-04-18] MEDS ORDERED: PROPOFOL 20 ML ONE (08:29)
[2023-04-18 08:30] LABS: ALBUMIN 3.1 g/dl (3.4-5.0)
[2023-04-18 08:32] LABS: CALCIUM 8.1 mg/dL (8.5-10.1); CREATININE 0.5 mg/dL (0.55-1.3); PHOSPHOROUS 2.9 mg/dL (2.5-4.9)
[2023-04-18 08:33] LABS: BILIRUBIN,TOTAL 0.8 mg/dL (0.2-1); TOT PROT 6.6 g/dl (6.4-8.2)
[2023-04-18] MEDS ORDERED: PROMETHAZINE HCL 25 MG/1 ML VIAL IVPB PRN (08:39)
[2023-04-18] MEDS ORDERED: oxyCODONE HCL 5 MG TABLET PO PRN ×4 (08:39→10:47)
[2023-04-18] MEDS ORDERED: LACTATED RINGERS SOLUTION 1,000 ML IV SCH (08:45)
[2023-04-18] MEDS ORDERED: MIDAZOLAM HCL 2 MG/2 ML SINGLE DOSE VIAL ONE (08:47)
[2023-04-18] MEDS ORDERED: LIDOCAINE HCL/PF 2% SDV 5ML VIAL ONE (08:50)
[2023-04-18] MEDS ORDERED: DEXAMETHASONE SOD PHOSPHATE 4 MG/1 ML VIAL ONE (08:50)
[2023-04-18] MEDS ORDERED: FENTANYL CITRATE/PF 50 MCG/ML VIAL ONE ×2 (08:50→09:33)
[2023-04-18] MEDS ORDERED: KETOROLAC TROMETHAMINE 30 MG/1 ML VIAL ONE (08:50)
[2023-04-18] MEDS ORDERED: SEVOFLURANE 250 ML BTL ONE (08:56)
[2023-04-18] MEDS ORDERED: AMPICILLIN NA/SULBACTAM NA 1.5 GM in SODIUM CHLORIDE 100 ML IVPB SCH ×2 (09:00→15:00)
[2023-04-18] MEDS ORDERED: BUPIVACAINE HCL/PF 0.25% (2.5MG/ML) 10 ML VIAL IJ ONE (09:34)
[2023-04-18] MEDS ORDERED: GLYCOPYRROLATE 0.2 MG/1 ML VIAL ONE (09:53)
[2023-04-18] MEDS ORDERED: NEOSTIGMINE METHYLSULFATE 0.5 MG/1 ML - 10 ML MDV ONE (09:53)
[2023-04-18] MEDS ORDERED: ACETAMINOPHEN 500 MG TABLET (FP) PO PRN (10:47)
[2023-04-18] MEDS: SODIUM CHLORIDE 1,000 ML IV SCH (11:00)
[2023-04-18] MEDS: AMPICILLIN NA/SULBACTAM NA 1.5 GM in SODIUM CHLORIDE 100 ML IVPB SCH ×2 (11:21→21:33)
[2023-04-18] MEDS ORDERED: AMPICILLIN NA/SULBACTAM NA 1.5 GM/100 ML PRE-DOCKED IVPB ONE (11:21)
[2023-04-18] MEDS: ACETAMINOPHEN 500 MG TABLET (FP) PO PRN (16:35)
[2023-04-18 22:57] VITALS: RESP 18
[2023-04-19] MEDS: SODIUM CHLORIDE 1,000 ML IV SCH (02:15)
[2023-04-19] MEDS: AMPICILLIN NA/SULBACTAM NA 1.5 GM in SODIUM CHLORIDE 100 ML IVPB SCH ×2 (02:16→10:51)
[2023-04-19 09:26] LABS: BASO % 0.2 % (0-2.0); EOS % 0.7 % (0-4.5); HEMATOCRIT 27.3 % (32.4-45.2); HEMOGLOBIN 8.6 GM/dL (10.7-15.3); LYMPH % 23.1 % (8-40); MCH 22.4 pg (25.7-33.7); MCHC 31.4 g/dl (32.0-36.0); MEAN CELL VOLUME 71.2 fl (80-96); MEAN PLT VOLUME 8.9 fl (7.5-11.1); MONO % 5.7 % (3.8-10.2); NEUT % 70.3 % (42.8-82.8); PLATELET COUNT 307 10^3/uL (134-434); RBC 3.83 M/mm3 (3.60-5.2); WHITE BLOOD COUNT 10.5 K/mm3 (4.0-10.0)
[2023-04-19 09:42] LABS: POTASSIUM 4.4 mmol/L (3.5-5.1)
[2023-04-19 09:49] LABS: CALCIUM 8.7 mg/dL (8.5-10.1)
[2023-04-19 09:50] LABS: ALBUMIN 2.7 g/dl (3.4-5.0); BLOOD UREA NITROGEN 11.4 mg/dL (7-18)
[2023-04-19 09:54] LABS: CREATININE 0.5 mg/dL (0.55-1.3)
[2023-04-19 09:56] LABS: BILIRUBIN,TOTAL 0.6 mg/dL (0.2-1); TOT PROT 6.1 g/dl (6.4-8.2)
[2023-04-19] MEDS ORDERED: AMPICILLIN NA/SULBACTAM NA 1.5 GM VIAL ONE (10:40)
[2023-04-19 11:58] VITALS: BP 118/68; PULSE 56; TEMP 98.4
[2023-04-19] MEDS: ACETAMINOPHEN 500 MG TABLET (FP) PO PRN (13:14)
== END 2023-04-19 14:04 | disposition home or self-care (01) | DRG 263 ==
LOC: JER 23:35 → JERBED 04-18 04:17 → J8W 04-18 15:06
PROVIDERS: ADMIT Internal Medicine; ATTEND Nurse Practitioner Family
PROC: 0W3 Anatomical Regions, General, Control (ICD-10-PCS; 2023-04-18)
PROC: 0FT44ZZ Resection of Gallbladder, Percutaneous Endoscopic Approach (ICD-10-PCS; principal; 2023-04-18 08:00)
DX: K80.12 Calculus of gallbladder with acute and chronic cholecystitis without obstruction (principal); K82.1 Hydrops of gallbladder; D50.9 Iron deficiency anemia, unspecified; R10.11 Right upper quadrant pain
CPT/HCPCS: 36415; 74176-TC; 80053; 81003; 82728; 83540; 83550; 83735; 84100; 84703; 85025; 85027; 85045; 85610; 85730; 87086; 87186; 88304-TC; 93005; 93010; 94760; 99285-25

== ENCOUNTER 2023-10-23 17:53 | Emergency (ER) | payer OTHER ==
[2023-10-23 17:59] VITALS: BP 130/81; PULSE 65; RESP 18; TEMP 98; BMI 33.6
[2023-10-23] MEDS ORDERED: METOCLOPRAMIDE HCL INJECTION 10 MG/2 ML VIAL ONE (19:05)
[2023-10-23] MEDS ORDERED: KETOROLAC TROMETHAMINE 30 MG/1 ML VIAL ONE (19:05)
[2023-10-23 19:10] LABS: BASO % 0.6 % (0-2.0); EOS % 2.1 % (0-4.5); HEMATOCRIT 31.7 % (32.4-45.2); HEMOGLOBIN 9.9 GM/dL (10.7-15.3); MCH 21.1 pg (25.7-33.7); MCHC 31.1 g/dl (32.0-36.0); MEAN CELL VOLUME 67.7 fl (80-96); MEAN PLT VOLUME 8.4 fl (7.5-11.1); MONO % 7.2 % (3.8-10.2); NEUT % 57.1 % (42.8-82.8); PLATELET COUNT 356 10^3/uL (134-434); RBC 4.68 M/mm3 (3.60-5.2); RDW 16.7 % (11.6-15.6); WHITE BLOOD COUNT 10.6 K/mm3 (4.0-10.0)
[2023-10-23] MEDS: METOCLOPRAMIDE HCL INJECTION 10 MG/2 ML VIAL IVPUSH ONE (19:10)
[2023-10-23] MEDS: KETOROLAC TROMETHAMINE 30 MG/1 ML VIAL IVPUSH ONE (19:10)
[2023-10-23] MEDS: SODIUM CHLORIDE 0.9% 500 ML INFUS.BAG IV ONE (19:10)
[2023-10-23 19:36] LABS: POTASSIUM 4.5 mmol/L (3.5-5.1)
[2023-10-23 19:38] LABS: CALCIUM 8.6 mg/dL (8.5-10.1)
[2023-10-23 19:39] LABS: ALBUMIN 3.6 g/dl (3.4-5.0); BLOOD UREA NITROGEN 12.6 mg/dL (7-18)
[2023-10-23 19:42] LABS: CREATININE 0.5 mg/dL (0.55-1.3)
[2023-10-23 19:43] LABS: BILIRUBIN,TOTAL 0.2 mg/dL (0.2-1)
[2023-10-23 19:44] LABS: TOT PROT 7.2 g/dl (6.4-8.2)
[2023-10-23 19:49] LABS: ANISOCYTOSIS 1+; MACROCYTOSIS 0; OVALOCYTE 1+
== END 2023-10-23 21:09 | disposition home or self-care (01) ==
LOC: JER 17:53
PROC: 3E033NZ Introduction of Analgesics, Hypnotics, Sedatives into Peripheral Vein, Percutaneous Approach (ICD-10-PCS; principal; 2023-10-23)
PROC: 3E033GC Introduction of Other Therapeutic Substance into Peripheral Vein, Percutaneous Approach (ICD-10-PCS; 2023-10-23)
PROC: 3E033GC Introduction of Other Therapeutic Substance into Peripheral Vein, Percutaneous Approach (ICD-10-PCS; 2023-10-23)
DX: R51.9 Headache, unspecified (principal)
CPT/HCPCS: 36415; 70450-TC; 80053; 85025; 99284-25